=== PATIENT | male | born 1950 | race African-American/Black ===

== ENCOUNTER 2020-09-10 13:46 | Inpatient (IN) | payer MEDICARE ==
[~2020-09-10 13:46] MED LIST: Iopamidol 370 76% 50 ML VIAL FS ONE; Iopamidol-370 76% 500 ML 1 ML ONE
[2020-09-10] MEDS ORDERED: Ondansetron PF 4 MG/2 ML Vial ONE (14:07)
[2020-09-10] MEDS ORDERED: Fentanyl 100 MCG/2 ML VIAL ONE ×2 (14:07→15:42)
[2020-09-10 14:45] LABS: #Basophils 0.1 thou/uL (0.0-0.2); #Eosinphils 0.1 thou/uL (0.0-0.7); #Lymphocytes 1.2 thou/uL (1.20-3.40); #Monocytes 0.6 thou/uL (0.11-0.59); %Basophils 0.9 % (0.0-1.0); %Eosinophils 1.2 % (0.0-10.0); %Lymphocytes 12.9 % (21.0-51.0); %Monocytes 7.1 % (0.0-10.0); %Neutrophils 77.9 % (42.0-75.0); Hemoglobin 10.6 g/dL (14.0-18.0); Mean Corpuscular HGB CONC 34.9 g/dL (32.0-36.0); Mean Corpuscular Hemoglobin 31.5 pg (27.0-31.0); Mean Corpuscular Volume 90.4 fL (78.0-98.0); Mean Platelet Volume 6.4 fL (7.4-10.4); Platelet Count 123 thou/uL (130-400); RBC Distribution Width 11.4 % (11.5-14.5); Red Blood Cell (RBC) Count 3.35 mill/uL (4.70-6.10)
[2020-09-10 15:07] LABS: ALT (SGPT) 62 U/L (8-55); AST (SGOT) 116 U/L (5-34); Albumin 3.9 g/dL (3.4-4.8); Alkaline Phosphatase 65 U/L (40-110); Anion Gap 18 mmol/L (10-20); BUN (Urea Nitrogen) 8 mg/dL (8.4-25.7); Bilirubin, Total 0.6 mg/dL (0.2-1.2); Calc. Creatinine Clearance 0 mL/min (70-130); Calcium 9.3 mg/dL (7.8-10.44); Carbon Dioxide 20 mmol/L (23-31); Chloride 100 mmol/L (98-107); Globulin 2.5 g/dL (2.4-3.5); Glucose 155 mg/dL (80-115); Potassium 3.6 mmol/L (3.5-5.1); Protein, Total 6.4 g/dL (5.8-8.1); Sodium 134 mmol/L (136-145)
[2020-09-10 17:21] LABS: Bacteria/HPF None Seen HPF (None Seen); Bilirubin Negative (Negative); Blood, Urine 3+ (Negative); Clarity Turbid (Clear); Glucose, Urine (Dipstick) Normal (Negative); Ketone, Urine 20 mg/dL (Negative); Leukocyte Negative Leu/uL (Negative); Nitrite Negative (Negative); Protein, Urine (Dipstick) 20 mg/dL (Neg-Trace); RBC/HPF Greater than 50 HPF (0-3); Specific Gravity, Urine 1.031 (1.002-1.036); Squamous Epithelial 0-3 HPF (0-3); Urobilinogen Normal mg/dL (Less than 2); WBC/HPF 0-3 HPF (0-3)
[2020-09-10 17:22] LABS: Sperm/HPF 1+ HPF (None Seen)
[2020-09-10] MEDS ORDERED: Morphine 4 MG/ML VIAL ONE ×2 (17:34→19:12)
[2020-09-10] MEDS ORDERED: hydrALAZINE 20 MG/ML VIAL SLOW IVP PRN (17:42)
[2020-09-10] MEDS ORDERED: Dextrose 50% Abboject 50 ML SYRINGE SLOW IVP PRN (17:42)
[2020-09-10] MEDS ORDERED: Dextrose 5% in Water 1,000 ML IV PRN (17:42)
[2020-09-10] MEDS ORDERED: Insulin Regular 300 UNITS/3 ML VIAL SC PRN (17:42)
[2020-09-10] MEDS ORDERED: Ondansetron ODT 4 MG TAB PO PRN (17:42)
[2020-09-10] MEDS ORDERED: Ondansetron PF 4 MG/2 ML Vial IVP PRN (17:42)
[2020-09-10 18:16] LABS: INR-International Normal Ratio 1.2; PTT 30.3 sec (22.9-36.1); Prothrombin Time 15.9 sec (12.0-14.7)
[2020-09-10] MEDS ORDERED: traMADol HCl 50 MG TAB PO PRN (18:36)
[2020-09-10] MEDS ORDERED: Ascorbic Acid 500 mg Chewable Tablet PO SCH (21:00)
[2020-09-10] MEDS: Ibuprofen 200 MG TAB PO SCH (21:11)
[2020-09-10] MEDS: Famotidine 20 MG TAB PO SCH (21:11)
[2020-09-10] MEDS: Lactated Ringer's 1,000 ML IV SCH (21:11)
[2020-09-10] MEDS: Gabapentin 300 MG CAP PO SCH (21:12)
[2020-09-10] MEDS: Oxazepam 10 MG CAP PO SCH (21:12)
[2020-09-10] MEDS ORDERED: Potassium Phosphate 30 MMOL in Sodium Chloride 0.9% 500 ML IVPB SCH (22:30)
[2020-09-10 22:57] VITALS: BMI 27.5
[2020-09-10] MEDS: Acetaminophen 325 MG TAB PO SCH (23:54)
[2020-09-10] MEDS: traMADol HCl 50 MG TAB PO SCH (23:54)
[2020-09-11] MEDS: Oxazepam 10 MG CAP PO SCH ×3 (05:11→22:09)
[2020-09-11] MEDS: traMADol HCl 50 MG TAB PO SCH ×3 (05:11→17:31)
[2020-09-11] MEDS: Ibuprofen 200 MG TAB PO SCH ×3 (05:12→22:09)
[2020-09-11] MEDS: Acetaminophen 325 MG TAB PO SCH ×3 (05:12→17:32)
[2020-09-11 05:34] LABS: SARS-CoV-2 PCR by NAA Not Detected (NotDetected)
[2020-09-11 05:51] LABS: Hemoglobin A1c 6.3 % (4.0-6.0)
[2020-09-11 05:56] LABS: #Eosinphils 0.1 thou/uL (0.0-0.7); #Lymphocytes 0.9 thou/uL (1.20-3.40); #Monocytes 0.2 thou/uL (0.11-0.59); #Neutrophils 3.9 thou/uL (1.40-6.50); %Basophils 0.2 % (0.0-1.0); %Eosinophils 2.3 % (0.0-10.0); %Monocytes 4.2 % (0.0-10.0); %Neutrophils 76.4 % (42.0-75.0); Hemoglobin 8.3 g/dL (14.0-18.0); Mean Corpuscular HGB CONC 35.9 g/dL (32.0-36.0); Mean Corpuscular Hemoglobin 32.6 pg (27.0-31.0); Mean Platelet Volume 6.5 fL (7.4-10.4); Platelet Count 88 thou/uL (130-400); RBC Distribution Width 11.4 % (11.5-14.5); Red Blood Cell (RBC) Count 2.55 mill/uL (4.70-6.10)
[2020-09-11] MEDS: HumaLOG 300 UNITS/3 ML VIAL SC PRN ×3 (05:59→17:33)
[2020-09-11] MEDS: Lactated Ringer's 1,000 ML IV SCH (06:01)
[2020-09-11 06:03] LABS: Phosphorus 4.6 mg/dL (2.3-4.7)
[2020-09-11 06:09] LABS: Anion Gap 12 mmol/L (10-20); BUN (Urea Nitrogen) 7 mg/dL (8.4-25.7); Calc. Creatinine Clearance 115 mL/min (70-130); Calcium 8.2 mg/dL (7.8-10.44); Carbon Dioxide 23 mmol/L (23-31); Chloride 102 mmol/L (98-107); Glucose 184 mg/dL (80-115); Magnesium 1.7 mg/dL (1.6-2.6); Potassium 3.7 mmol/L (3.5-5.1); Sodium 133 mmol/L (136-145)
[2020-09-11] MEDS ORDERED: Ascorbic Acid 500 mg Chewable Tablet PO SCH (08:00)
[2020-09-11] MEDS ORDERED: Ferrous Sulfate 325 MG TAB PO SCH (08:00)
[2020-09-11] MEDS: Famotidine 20 MG TAB PO SCH ×2 (08:52→20:52)
[2020-09-11] MEDS: Gabapentin 300 MG CAP PO SCH ×3 (08:53→20:53)
[2020-09-11] MEDS: Ascorbic Acid 500 mg Chewable Tablet PO SCH ×2 (08:54→20:53)
[2020-09-11] MEDS ORDERED: Senokot 8.6 MG TAB PO PRN (08:54)
[2020-09-11] MEDS: Thiamine 100 MG TAB PO SCH (08:55)
[2020-09-11] MEDS ORDERED: Non-Formulary Item 1 EACH (Hydrochlorothiazide [Hydrochlorothiazide] 12.5 MG Tablet) PO SCH (09:00)
[2020-09-11] MEDS ORDERED: Losartan 25 MG TAB PO SCH (09:00)
[2020-09-11] MEDS ORDERED: Olmesartan 5 MG TAB PO SCH (09:00)
[2020-09-11] MEDS ORDERED: Hydrochlorothiazide 25 MG TAB PO SCH (09:00)
[2020-09-11] MEDS: Ferrous Sulfate 325 MG TAB PO SCH ×2 (09:56→20:52)
[2020-09-11] MEDS: Amlodipine 5 MG TAB PO SCH (09:56)
[2020-09-11] MEDS: Atorvastatin Calcium 40 MG TAB PO SCH (10:36)
[2020-09-11] MEDS: Polyethylene Glycol 3350 17 GM Packet PO SCH (10:37)
[2020-09-11] MEDS: Melatonin 3 MG TAB PO SCH (20:53)
[2020-09-11] MEDS ORDERED: Non-Formulary Item 1 EACH (Melatonin/Pyridoxine [Melatonin 5 Mg Tablet] 1 EACH Tablet) PO SCH (21:00)
[2020-09-11] MEDS ORDERED: Tamsulosin HCl 0.4 MG CAP PO SCH (21:00)
[2020-09-11] MEDS: Cyclobenzaprine 10 MG TAB PO PRN (22:24)
[2020-09-12] MEDS: Acetaminophen 325 MG TAB PO SCH ×5 (00:15→23:53)
[2020-09-12] MEDS: traMADol HCl 50 MG TAB PO SCH ×5 (00:15→23:53)
[2020-09-12 05:33] LABS: #Eosinphils 0.2 thou/uL (0.0-0.7); #Lymphocytes 0.7 thou/uL (1.20-3.40); #Monocytes 0.5 thou/uL (0.11-0.59); %Basophils 0.3 % (0.0-1.0); %Eosinophils 4.3 % (0.0-10.0); %Lymphocytes 16.4 % (21.0-51.0); %Monocytes 10.9 % (0.0-10.0); %Neutrophils 68.1 % (42.0-75.0); Hemoglobin 7.6 g/dL (14.0-18.0); Mean Corpuscular HGB CONC 36.6 g/dL (32.0-36.0); Mean Corpuscular Hemoglobin 33.5 pg (27.0-31.0); Mean Corpuscular Volume 91.4 fL (78.0-98.0); Mean Platelet Volume 6.5 fL (7.4-10.4); Platelet Count 73 thou/uL (130-400); RBC Distribution Width 11.2 % (11.5-14.5); Red Blood Cell (RBC) Count 2.26 mill/uL (4.70-6.10); White Blood Cell (WBC) Count 4.4 thou/uL (4.8-10.8)
[2020-09-12] MEDS: Oxazepam 10 MG CAP PO SCH ×3 (06:37→21:29)
[2020-09-12] MEDS: Ibuprofen 200 MG TAB PO SCH ×3 (06:39→21:29)
[2020-09-12] MEDS ORDERED: Dextrose 5% in Water 1,000 ML IV PRN (06:40)
[2020-09-12] MEDS ORDERED: Dextrose 50% Abboject 50 ML SYRINGE SLOW IVP PRN (06:40)
[2020-09-12] MEDS: HumaLOG 300 UNITS/3 ML VIAL SC PRN ×4 (06:42→21:29)
[2020-09-12] MEDS: Gabapentin 300 MG CAP PO SCH ×3 (09:16→21:29)
[2020-09-12] MEDS: Famotidine 20 MG TAB PO SCH ×2 (09:16→21:29)
[2020-09-12] MEDS: Thiamine 100 MG TAB PO SCH (09:16)
[2020-09-12] MEDS: Atorvastatin Calcium 40 MG TAB PO SCH (09:16)
[2020-09-12] MEDS: Amlodipine 5 MG TAB PO SCH (09:17)
[2020-09-12] MEDS: Polyethylene Glycol 3350 17 GM Packet PO SCH (09:17)
[2020-09-12] MEDS: Ferrous Sulfate 325 MG TAB PO SCH ×2 (09:17→21:29)
[2020-09-12] MEDS: Ascorbic Acid 500 mg Chewable Tablet PO SCH ×2 (09:17→21:29)
[2020-09-12] MEDS ORDERED: Iopamidol-370 76% 500 ML 1 ML ONE (10:09)
[2020-09-12] MEDS: Melatonin 3 MG TAB PO SCH (21:29)
[2020-09-12] MEDS: Lantus 1000 UNITS/10 ML VIAL SC SCH (21:29)
[2020-09-13 05:36] LABS: #Eosinphils 0.2 thou/uL (0.0-0.7); #Lymphocytes 0.8 thou/uL (1.20-3.40); #Monocytes 0.7 thou/uL (0.11-0.59); #Neutrophils 3.8 thou/uL (1.40-6.50); %Basophils 0.4 % (0.0-1.0); %Eosinophils 3.7 % (0.0-10.0); %Lymphocytes 14.1 % (21.0-51.0); %Monocytes 12.8 % (0.0-10.0); Hemoglobin 7.3 g/dL (14.0-18.0); Mean Corpuscular HGB CONC 35.7 g/dL (32.0-36.0); Mean Corpuscular Hemoglobin 32.7 pg (27.0-31.0); Mean Corpuscular Volume 91.6 fL (78.0-98.0); Mean Platelet Volume 6.8 fL (7.4-10.4); Platelet Count 73 thou/uL (130-400); RBC Distribution Width 11.1 % (11.5-14.5); Red Blood Cell (RBC) Count 2.23 mill/uL (4.70-6.10); White Blood Cell (WBC) Count 5.5 thou/uL (4.8-10.8)
[2020-09-13] MEDS: Ibuprofen 200 MG TAB PO SCH (06:05)
[2020-09-13] MEDS: traMADol HCl 50 MG TAB PO SCH ×3 (06:05→17:56)
[2020-09-13] MEDS: Acetaminophen 325 MG TAB PO SCH ×3 (06:05→17:55)
[2020-09-13] MEDS: Oxazepam 10 MG CAP PO SCH ×3 (06:05→21:19)
[2020-09-13] MEDS: Cyanocobalamin (Vitamin B-12) 1,000 MCG TAB PO SCH (09:02)
[2020-09-13] MEDS: Famotidine 20 MG TAB PO SCH ×2 (09:02→20:00)
[2020-09-13] MEDS: Ferrous Sulfate 325 MG TAB PO SCH ×2 (09:02→20:00)
[2020-09-13] MEDS: Ascorbic Acid 500 mg Chewable Tablet PO SCH ×2 (09:03→20:00)
[2020-09-13] MEDS: Gabapentin 300 MG CAP PO SCH ×3 (09:03→20:01)
[2020-09-13] MEDS: Atorvastatin Calcium 40 MG TAB PO SCH (09:03)
[2020-09-13] MEDS: Thiamine 100 MG TAB PO SCH (09:04)
[2020-09-13] MEDS: Polyethylene Glycol 3350 17 GM Packet PO SCH (09:04)
[2020-09-13] MEDS: HumaLOG 300 UNITS/3 ML VIAL SC PRN ×3 (11:53→19:59)
[2020-09-13] MEDS: Cyclobenzaprine 10 MG TAB PO PRN (18:21)
[2020-09-13] MEDS: Lantus 1000 UNITS/10 ML VIAL SC SCH (19:59)
[2020-09-13] MEDS: Melatonin 3 MG TAB PO SCH (20:01)
[2020-09-14] MEDS: traMADol HCl 50 MG TAB PO SCH ×4 (00:08→17:28)
[2020-09-14] MEDS: Acetaminophen 325 MG TAB PO SCH ×4 (00:08→17:27)
[2020-09-14] MEDS: Cyclobenzaprine 10 MG TAB PO PRN ×2 (05:48→14:16)
[2020-09-14] MEDS: Oxazepam 10 MG CAP PO SCH ×2 (05:50→14:18)
[2020-09-14] MEDS: Polyethylene Glycol 3350 17 GM Packet PO SCH (08:49)
[2020-09-14] MEDS: Thiamine 100 MG TAB PO SCH (08:49)
[2020-09-14] MEDS: Famotidine 20 MG TAB PO SCH (08:49)
[2020-09-14] MEDS: Ferrous Sulfate 325 MG TAB PO SCH (08:49)
[2020-09-14] MEDS: Cyanocobalamin (Vitamin B-12) 1,000 MCG TAB PO SCH (08:49)
[2020-09-14] MEDS: Gabapentin 300 MG CAP PO SCH ×2 (08:50→14:16)
[2020-09-14] MEDS: Atorvastatin Calcium 40 MG TAB PO SCH (08:50)
[2020-09-14] MEDS: Ascorbic Acid 500 mg Chewable Tablet PO SCH (08:50)
[2020-09-14 11:03] LABS: #Eosinphils 0.1 thou/uL (0.0-0.7); #Lymphocytes 0.8 thou/uL (1.20-3.40); #Monocytes 0.8 thou/uL (0.11-0.59); #Neutrophils 4.2 thou/uL (1.40-6.50); %Basophils 0.5 % (0.0-1.0); %Eosinophils 2.1 % (0.0-10.0); %Lymphocytes 13.4 % (21.0-51.0); Hemoglobin 8.5 g/dL (14.0-18.0); Mean Corpuscular HGB CONC 36.1 g/dL (32.0-36.0); Mean Corpuscular Hemoglobin 33.1 pg (27.0-31.0); Mean Corpuscular Volume 91.7 fL (78.0-98.0); Mean Platelet Volume 6.7 fL (7.4-10.4); Platelet Count 95 thou/uL (130-400); RBC Distribution Width 11.1 % (11.5-14.5); Red Blood Cell (RBC) Count 2.58 mill/uL (4.70-6.10)
[2020-09-14] MEDS: HumaLOG 300 UNITS/3 ML VIAL SC PRN ×2 (11:17→17:29)
[2020-09-14 16:57] VITALS: BP 141/81; TEMP 98.4
== END 2020-09-14 19:17 | DRG 552 ==
LOC: ERS 13:46 → SURG A 16:48
PROVIDERS: ADMIT Surgery; ATTEND Surgery
DX: S32.10XA Unspecified fracture of sacrum, initial encounter for closed fracture (principal); S32.592A Other specified fracture of left pubis, initial encounter for closed fracture; E87.1 Hypo-osmolality and hyponatremia; S32.302A Unspecified fracture of left ilium, initial encounter for closed fracture; W11.XXXA Fall on and from ladder, initial encounter; M62.89 Other specified disorders of muscle; E11.9 Type 2 diabetes mellitus without complications; I10 Essential (primary) hypertension; E78.5 Hyperlipidemia, unspecified; R31.9 Hematuria, unspecified; S30.0XXA Contusion of lower back and pelvis, initial encounter; Z20.822 Contact with and (suspected) exposure to COVID-19
CPT/HCPCS: 36415; 36416; 51702; 70450; 71045; 71260; 72125; 72170; 72193; 74177; 80048; 80053; 81003; 81015; 83036; 83735; 84100; 85025; 85610; 85730; 86850; 86900; 86901; 87635; 96374; 96375; 96376; J1815; J2270; J2405; J3010; J7030; Q9967; U0003; U0005